=== PATIENT | male | born 1930 | race Two or more races ===

== ENCOUNTER 2019-02-10 13:33 | Observation (INO) | payer MEDICARE ==
[~2019-02-10] VITALS: Ht 175.3 cm; Wt 63.0 kg
--- NOTE | 2019-02-10 18:02 | NUR ---
PT TO FLOOR, TO ROOM 110 AT 1755 VIA STRETCHER. MOVED FROM STRETCHER TO BED WITH 4 PERSON ASSIST. PT WAS INCONTINENT OF LARGE AMOUNT OF URINE. CHANGED CLOTHING, FRESH LINNENS PROVIDED, PLACED ON BED. PT'S SON ACCOMPANIED HIM TO ROOM, BUT THEN STATED HE HAD TO LEAVE, LEFT AT 1800. PT DROWSY, EYES CLOSED. PT REPLIED "NO" WHEN ASKED IF HE SPEAKS ANY TAJIK. WILL GET PROGRAMMER ANALYST PHONE.
--- NOTE | 2019-02-10 18:55 | NUR ---
DR. JOHNSON IN WITH PT, DID DIGITAL DISEMPACTION OF FECES FROM PT'S RECTUM, GOT A MODERATE AMOUNT OF PASTY BROWN STOOL OUT. DR. JOHNSON THEN GAVE ORDER FOR FLEETS ENEMA UT X 1, THIS WAS GIVEN WITH DR. JOHNSON AT PT'S BEDSIDE. PT THEN HAD A MEDIUM FIRM FORMED STOOL AND THEN MEDIUM LIQUIDY BROWN STOOL. PT CLEANED WITH ASSISTANCE FROM NURSING STAFF, ATTENDS PLACED ON PT, FRESH LINNENS PLACED ON BED. PROVIDED PT WITH WARM BLANKETS. BED ALARM ON.
--- NOTE | 2019-02-10 19:42 | NUR ---
REPORT RECEIVED, PT RESTING IN BED, NO NEEDS AT THIS TIME, CALL LIGHT WITHIN REACH. BED ALARM ON. FALL PRECAUTIONS IN PLACE.
--- NOTE | 2019-02-10 20:51 | NUR ---
PT "GRANDDAUGHTER" ELSI CALLED, INQUIRED. SUGGESTED THAT PT SON RADHA BERRIOS SPEAK TO DR JOHNSON FRIDAY MORNING WHEN HE COMES TO HIS FATHERS ROOM. SHE STATED THAT HE WOULD BE HERE.
--- NOTE | 2019-02-10 22:27 | NUR ---
IN ROOM FOR ASSESSMENT AND TO ADMINISTER SCHEDULED MEDS, PT RESTING IN BED, DENIES ANY PAIN OR NAUSEA, DENIES ANY NEEDS AT THIS TIME, INSULIN COVERAGE PROVIDED PER EMAR, SEE EMAR. CALL LIGHT WITHIN REACH. FALL PRECAUTIONS IN PLACE.
--- NOTE | 2019-02-10 22:45 | NUR ---
PT INCONTINENT OF LARGE LOOSE/SOFT BM AND VOID, ATTENDS AND BEDDING CHANGED, SOAP SUDS ENEMA COMPLETE PER ORDERS, PROCEDURE WAS EXPLAINED BY DE ICER, PT TOLERATED WELL. MODERATE AMOUNT OF LOOSE AND SEMI FORMED STOOL NOTED, BEDDING AND ATTENDS CHANGED, PT DENIES ANY NEEDS AT THIS TIME. DENIES PAIN OR NAUSEA, CALL LIGHT WITHIN REACH. IV FLUIDS INFUSING PER EMAR WNL.
--- NOTE | 2019-02-10 23:57 | NUR ---
PT RESTING IN BED, EYES CLOSED, BREATHS EVEN, UNLABORED, NO REQUESTS AT THIS TIME, CALL LIGHT WITHIN REACH. FALL PRECAUTIONS IN PLACE.BED ALARM ON. IV FLUIDS INFUSING PER EMAR WNL.
--- NOTE | 2019-02-11 02:45 | NUR ---
PT NOTED TO BE INCONTINENT OF VERY LARGE AND LOOSE BROWN STOOL ATTENDS AND BEDDING CHANGED, PT TOLERATED WELL. NO FURTHER NEEDS AT THIS TIME. ASSESSMENT COMPLETE. CALL LIGHT WITHIN REACH. IV FLUIDS INFUSING PER EMAR WNL.
--- NOTE | 2019-02-11 06:00 | NUR ---
SECOND SOAP SUDS ENEMA COMPLETE, PT INCONTINENT OF VERY LARGE LOOSE STOOL, BROWN, PT UP TO BSC, PT CONTIUED TO HAVE LARGE BM IN BSC, PT BACK TO BED, ATTENDS CHANGED, BEDDING CHANGED. PT DID WELL WITH 2 PERSON ASSIST/PIVOT TO BSC. IV FLUIDS INFUSING PER EMAR WNL.
--- NOTE | 2019-02-11 07:00 | NUR ---
BEDSIDE HANDOFF REPORT RECEIVED FROM TENTERING MACHINE FEEDER RN. PT RESTING IN BED. PT INCONTINENT OF LARGE STOOL, PERICARE PEROFMORED. PT PROVIDED WITH WARM BLANKETS. PT DENIES OTHER NEEDS AT THIS TIME.
--- NOTE | 2019-02-11 08:00 | NUR ---
PT RESTING IN BED. SPORTS REPORTER CODING TECHNICIAN. PT ON ROOM AIR, LUNG SOUNDS CLEAR. PT DENEIS PAIN, DENIES NAUSEA. PT BOWEL TONES ACTIVE, ABD SOFT NON TENDER, TOLERATING CLEAR LIQUIDS. CMS INATCT, PT WITH TRACE EDEMA TO BLE. PT 2PA TO STAND PIVOT TO CHAIR FOR BREAKFAST. IV FLUIDS INFUSIGN LR AT 100 ML/HR. PT DENIES OTHER NEEDS AT THIS TIME.
--- NOTE | 2019-02-11 09:30 | NUR ---
PT GIVEN LACTULOSE PER ORDER. PT RESTIGNIN BED. PT DENIES NEEDS AT THIS TIME.
--- NOTE | 2019-02-11 09:46 | NUR ---
PATIENT SITTING UP IN CHAIR. VITAL SIGNS AND I&O DONE. PATIENT BACKS TO BED. ONE PERSON ASSISTING. WARM BLANKET PROVIDED. CALL LIGHT WITHIN REACH. NO OTHER NEEDS AT THIS TIME
--- NOTE | 2019-02-11 10:00 | NUR ---
PT GIVEN BISACODYL SUPPOSITORY PER ORDER, SMALL AMOUNT OF LIQUID STOOL DURING INSERTION. PT RESTING IN BED. SON AT BEDSIDE, UPDATED ON PLAN OF CARE. PT DENIES OTHER NEEDS AT THIS TIME.
--- NOTE | 2019-02-11 11:01 | NUR ---
PATIENT RESTING IN BED. RN AND SON IN ROOM. PATIENT CLEANED. PATIENT TRANSFERRED TO SHOWER CHAIR. TWO PERSON ASSISTING. PATIENT TAKES A SHOWER. ONE PERSON ASSISTING. PATIENT USING A CLEAN GOWN AND ADULT PULL UP. PATIENT BACKS TO BED. CALL LIGHT WITHIN REACH. NO OTHER NEEDS AT THIS TIME
--- NOTE | 2019-02-11 12:20 | NUR ---
PT BLOOD GLUCOSE 205, GIVEN 3 UNITS SS HUMALOG. PT ASSISTED TO CHAIR WITH 1PA TO EAT LUNCH. PT DENIES OTHER NEEDS AT THIS TIME.
--- NOTE | 2019-02-11 12:49 | NUR ---
CALL LIGHT ANSWERED. PATIENT SITTING UP IN CHAIR. PATIENT GOES BACK TO BED. ONE PERSON ASSISTING. WARM BLANKET PROVIDED. CALL LIGHT WITHIN REACH. NO OTHER NEEDS AT THIS TIME
--- NOTE | 2019-02-11 13:24 | NUR ---
PATIENT RESTING IN BED. VITAL SIGNS AND I&O DONE. CALL LIGHT WITHIN REACH. NO OTHER NEEDS AT THIS TIME
--- NOTE | 2019-02-11 14:28 | NUR ---
PATIENT RESTING IN BED. PATIENT ATTEND AND GOWN CHANGED. WARM BLANKET PROVIDED PATIENT'S DINNER AND BREAKFAST ORDERED. CALL LIGHT WITHIN REACH. NO OTHER NEEDS AT THIS TIME
[2019-02-11] MEDS ORDERED: SENOKOT8.6 MG PO (14:37)
[2019-02-11] MEDS ORDERED: LACTULOSE10 GM/152 PO (14:38)
--- NOTE | 2019-02-11 14:40 | NUR ---
MD TO BEDSIDE TO EVALUATE PT. PLAN FOR DISCHARGE THIS AFTERNOON. SON RADHA CALLED AND NOTIFIED OF RODY SON TO COME DIRECTOR OF PREMIUM SEAT SALES PT LATER THIS EVENING.
--- NOTE | 2019-02-11 17:16 | NUR ---
PT GIVEN 1 UNIT SS HUMALOG FOR BLOOD GLUCOSE 142. PT ASSISTED TO CHAIR FOR DINNER. PT DENIES OTHER NEEDS AT THIS TIME.
--- NOTE | 2019-02-11 17:24 | NUR ---
PATIENT SITTING UP IN CHAIR. VITAL SIGNS AND I&O DONE. CALL LIGHT WITHIN REACH. NO OTHER NEEDS AT THIS TIME
--- NOTE | 2019-02-11 19:45 | NUR ---
PT'S SON ARRIVED TO TAKE HIM HOME. DARIUSZ CHAPA REMOVED IV AND PT TOLERATED WELL. BEL LEE COMPLETED DC INSTRUCTIONS AND EDUCATION WITH PT AND SON BEFORE SHE LEFT. THIS RN WAS NOTIFIED THAT PT WAS DRESSED AND READY TO GO HOME. VS WERE TAKEN BY GONZALEZ CHAPA AND SHE DRESSED HIM. PT LEFT WITH SON VIA WHEELCHAIR. HE HAS ALL RX AND DENIES FURTHER QUESTIONS.
[2019-02-12] MEDS ORDERED: ACTOS30 MG PO (17:54)
[2019-02-12] MEDS ORDERED: LIPITOR40 MG PO (17:54)
[2019-02-12] MEDS ORDERED: GLUCOPHAGE1000 MG PO (17:55)
== END 2019-02-11 19:48 | disposition home or self-care (01) ==
LOC: ED 13:33 → MS 13:35
PROVIDERS: ADMIT Internal Medicine
DX: K56.41 Fecal impaction (principal); K59.09 Other constipation; E11.9 Type 2 diabetes mellitus without complications; E86.0 Dehydration; Z87.891 Personal history of nicotine dependence; Z86.73 Personal history of transient ischemic attack (TIA), and cerebral infarction without residual deficits
CPT/HCPCS: 36415; 74177; 80048; 80053; 81001; 83690; 83735; 85025; 96361; 99284-25; G0378; J1815; J2405; J2765; J7040; J7120; Q9967

== ENCOUNTER 2019-02-12 10:48 | Inpatient (IN) | payer MEDICARE ==
[~2019-02-12] VITALS: Ht 175.3 cm; Wt 63.0 kg
[~2019-02-12 10:48] MED LIST: LACTULOSE10 GM/152 PO; SENOKOT8.6 MG PO
--- OUTSIDE RECORDS SUMMARY | 2019-02-12 10:52 | XMS ---
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 Long has no Care Guidelines for this patient. [place] VISIT COUNT (12 MO.) [address] [facility] TOTAL 2 NOTE: Visits indicate total known visits. ED/C VISIT TRACKING (12 MO.) 02/12/2019 10:49 [facility] [place] TYPE: Emergency COMPLAINT: - RIGHT LEG PAIN/FALL 02/10/2019 13:34 [facility] [place] TYPE: Emergency COMPLAINT: - NASEAU/VOMITING NOT EATING INPATIENT VISIT TRACKING (12 MO.) 02/10/2019 13:35 [facility] [place] TYPE: Observation COMPLAINT: - FECAL IMPACTION,MECHANICAL BOWEL OBSTRUCTION DIAGNOSES: - Fecal impaction - Dehydration - Other constipation - Personal history of nicotine dependence - Personal history of transient ischemic attack (TIA), and cerebral infarction without residual deficits - Unspecified abdominal pain - Type 2 diabetes mellitus without complications [email or web address]
--- NOTE | 2019-02-12 14:35 | NUR ---
1435: PT ARRIVED TO MED-SURG FROM ER. PT STATES HE HAS RIGHT HIP PAIN RATED AT AN 8/10. PT ORIENTED TO THE ROOM AND INSTRUCTED TO CALL AND TO NOT TRY AND GET UP WITHOUT HELP.
--- NOTE | 2019-02-12 15:51 | NUR ---
Pt states he has no pain at this time.
--- NOTE | 2019-02-12 16:20 | NUR ---
PATIENT RESTING IN BED. SON IN ROOM. PATIENT'S DINNER ORDERED. CALL LIGHT WITHIN REACH. NO OTHER NEEDS AT THIS TIME
--- NOTE | 2019-02-12 17:22 | NUR ---
PATIENT RESTING IN BED. SON AND RN IN ROOM. VITAL SIGNS AND I&O DONE. CALL LIGHT WITHIN REACH. NO OTHER NEEDS AT THIS TIME
[2019-02-12] MEDS ORDERED: LIPITOR40 MG PO (17:54)
[2019-02-12] MEDS ORDERED: ACTOS30 MG PO (17:54)
[2019-02-12] MEDS ORDERED: GLUCOPHAGE1000 MG PO (17:55)
--- NOTE | 2019-02-12 17:56 | NUR ---
PT SLEEPING AT THIS TIME.
--- NOTE | 2019-02-12 17:56 | NUR ---
Ivorian speaking only. Need doses/frequency clarified
--- NOTE | 2019-02-12 18:26 | NUR ---
PT STATES HIS PAIN IS UNDER GOOD CONTROL WHILE AT REST. HE DENIES THE NEED FOR ANY PAIN MEDICATION AT THIS TIME.
--- NOTE | 2019-02-12 19:05 | NUR ---
BEDSIDE REPORT RECEIVED FROM OFFGOING RN. PT RESTING IN BED, DOES NOT WAKE DURING REPORT. CALL LIGHT IN REACH. ROOM IN VIEW OF RN STATION.
--- NOTE | 2019-02-12 19:40 | NUR ---
AWAKES EASILY, ON ROOM AIR. EXPLAINED HOSP ROUTINES IN JAPANESE BY THIS RN. STAED UNDERSTANDING, DENIES C/O R LEG PAIN. CALL LIGHT AND FLUIDS AT BEDSIDE
--- NOTE | 2019-02-12 21:19 | NUR ---
PT ASSESSMENT COMPLETE. PT RATES PAIN 04/17, STATES "ESTA MAGGIE". SCHEDULED TYLENOL ADMINSITERED. PT FOUND TO BED INCONTINENT OF URINE. BED LINENS CHANGED, ATTENDS PLACED AND CHUX PLACED ON BED. CMS INTACT. PT HAS HX OF CVA WITH R SIDED DEFICITS. PT REPORTS NUMBNESS AND TINGLING TO R HAND, DENIES NUMBNESS OR TINGLING TO R LOWER EXTREMITY. PERSONAL CARE ITEMS PLACED AT BEDSIDE. CALL LIGHT IN REACH. ROOM IN VIEW OF RN STATION.
--- NOTE | 2019-02-12 23:32 | NUR ---
PT RESTING IN BED WITH EYES CLOSED. BLANKETS ARE PULLED UP OVER PT'S FACE. RESPIRATIONS ARE EVEN AND UNLABORED. PT APPEARS TO BE SLEEPING. CALL LIGHT IN REACH. ROOM IN VIEW OF RN STATION.
--- NOTE | 2019-02-13 01:30 | NUR ---
PT RESTING IN BED WITH EYES CLOSED. BLANKETS TUCKED AROUND PT'S HEAD. RESPIRATIONS EVEN AND UNLABORED. PT DOES NOT WAKE WHILE MINE SUPERVISOR ENTERS THE ROOM. PT APPEARS TO BE SLEEPING. CALL LIGHT IN REACH. ROOM IN VIEW OF RN STATION.
--- NOTE | 2019-02-13 03:29 | NUR ---
PT ASSISTED TO USE THE URINAL. PT STATES "ESTA MAGGIE" WHEN ASKED ABOUT PAIN. PT ASSISTED TO REPOSITION. PT ASSESSMENT COMPLETE. CALL LIGHT IN REACH. ROOM IN VIEW OF RN STATION.
--- NOTE | 2019-02-13 04:53 | NUR ---
PT SLEPT WELL OVERNIGHT. PAIN WELL CONTROLLED WITH SCHEDULED TYLENOL. NO NAUSEA OR SOB. PT USES URINAL IN BED THIS SHIFT. ATTENDS FOR INCONTINENCE. CMS INTACT TO ALL EXTREMITIES. HX NUMBNESS AND TINGLING TO R HAND AND R FACIAL DROOP D/T OLD CVA. WEIGHT BEARING TOLERATED. ACCUCHECK AND SSI. LR @ 75.
--- NOTE | 2019-02-13 06:06 | NUR ---
INCONTINENT OF URINE, CHANGED, SKIN CARE DONE, REPOSITIONED IN BED. PROCEDURE EXPLAINED IN SWEDISH. C/O MILD DISCOMFORT R LEG WITH TURNING, DENIES NEED FOR PAIN MED AT THIS TIME.
--- NOTE | 2019-02-13 07:23 | NUR ---
0700: BEDSIDE REPORT RECIEVED. PT SLEEPING, CALL YAÑEZ WITHIN REACH.
--- NOTE | 2019-02-13 08:44 | NUR ---
PT NOW EATING HIS BREAKFAST AND RATING HIS PAIN AT A 4/10 WHICH IS ACCEPTABLE TO HIM. CALL YAÑEZ WITHIN REACH.
--- NOTE | 2019-02-13 10:19 | NUR ---
Pt sleeping in his room, he awakes to voice and rates his right hip pain at a 4 which is acceptable to him. He states the pain does increase with movement. Pt quickly back to sleep.
--- NOTE | 2019-02-13 10:30 | NUR ---
Pt had been incont of stool and was cleaned up and a fresh attends placed. Pt stood and ambulated around his bed with assist by myself and the physical therapist. Pt then sat down in the recliner. He states he has no pain at rest and he rated to a 6 with walking and states it is now gone.
--- NOTE | 2019-02-13 13:29 | NUR ---
PT WAS SLEEPING, AWAKES TO VOICE AND FOLLOWS COMMANDS OF THE ONES THAT HE CAN UNDERSTAND. PT DENIES ANY PAIN AT REST.
--- NOTE | 2019-02-13 14:18 | NUR ---
PT SLEEPING AT THIS TIME.
--- NOTE | 2019-02-13 16:15 | NUR ---
Pt resting in bed and is visiting with his son. Pt denies any pain at rest. Right pedal pulse +2.
--- NOTE | 2019-02-13 18:06 | NUR ---
PT WAS INCONT OF A MEDIUM SIZED MUCOIED STOOL. WAS WAS CLEANED AND A FRESH ATTENDS WAS PLACED. THE PT TOLERATED TO TURNING FAIR AND IS NOW BACK TO SLEEP.
--- NOTE | 2019-02-13 19:02 | NUR ---
RECEIVED REPORT FROM ROSA CARREON. pt RESTING WITH EYES CLOSED, RESPIRATIONS REGULAR AND UNLABORED. WHITEBOARD UPDATED. CALL LIGHT WITHIN REACH.
--- NOTE | 2019-02-13 20:46 | NUR ---
TOBY IN ROOM TO DO VITALS. ASSESSMENT DONE. pt REPORTED 6/10 PAIN WHEN MOVING. pt IDENTIFIED MEDICATIONS IN [place], MEDICATIONS GIVEN (SEE MAR). ICE PACK PROVIDED FOR HIP. NO REQUESTS AT THIS TIME. CALL LIGHT WITHIN REACH.
--- NOTE | 2019-02-13 21:32 | EKG ---
[facility] [address] [facility] [place] [address] Signed Sinus tachycardia Left axis deviation Abnormal ECG No previous ECGs available Confirmed by SANDRO JOHNSON MD ([id number]) on 02/13/2019 9:32:08 PM Electronically Signed By: SANDRO JOHNSON MD 02/13/19 213 PATIENT NAME: LV BERRIOS Electrocardiogram DATE OF : 34 PHYSICIAN: SANDRO JOHNSON MD REPORT #: [id number] REPORT IS CONFIDENTIAL AND NOT TO BE RELEASED WITHOUT AUTHORIZATION
--- NOTE | 2019-02-13 22:52 | NUR ---
ROUNDED ON pt. RESTING WITH EYES CLOSED, RESPIRATIONS REGULAR AND UNLABORED. RATE = 16. CALL LIGHT WITHIN REACH.
--- NOTE | 2019-02-14 01:29 | NUR ---
ROUNDED ON pt. RESTING WITH EYES CLOSED, RESPIRATIONS REGULAR AND UNLABORED. RATE = 16. CALL LIGHT WITHIN REACH.
--- NOTE | 2019-02-14 03:53 | NUR ---
ROUNDED ON pt. RESTING WITH EYES CLOSED, RESPIRATIONS REGULAR IN RATE AND RHYTHM. RATE = 16. URINAL EMPTIED. CALL LIGHT WITHIN REACH.
--- NOTE | 2019-02-14 05:18 | NUR ---
pt RESTED MOST OF SHIFT. PAIN CONTROL WITH SCHEDULED MEDS. USES URINAL AT BEDSIDE. ATTENDS FOR INCONTINENCES. HX NUMBNESS AND TINGLING TO RIGHT HAND AND RIGHT FACIAL DROOP FROM OLD CVA. WEIGHT BEARING TOLERATED. ACCUCHECK AND SLIDING SCALE. IV SL. SAMI SPEAKING.
--- NOTE | 2019-02-14 05:45 | NUR ---
WELDING EQUIPMENT REPAIRER SUPERVISOR IN TO DO VITALS. pt AWAKE. ASSESSMENT DONE. INDICATED A LITTLE BIT OF PAIN. BREAKFAST ORDER TAKEN. COFFEE PROVIDED. CALL LIGHT WITHIN REACH.
--- NOTE | 2019-02-14 07:18 | NUR ---
0700: Bedside report recieved from Lisa LEE. Pt sleeping at this time and appears in no distress. Call lui within reach.
--- NOTE | 2019-02-14 08:17 | NUR ---
Pt was sleeping when I arrived to his room, he awakes to voice and states his pain is a 3 which is acceptable to him. Pt medicated with scheduled Tylenol. Pt now sitting up in his bed having breakfast. call lui within reach.
--- NOTE | 2019-02-14 09:19 | NUR ---
PT HAD A LARGE BROWN LIQUID BM OF WHICH HE WAS INCONT. PT CLEANED AND FRESH ATTENTS PLACED. PT HAD SOME NOTED PAIN WITH TURNING OF WHICH HE RATED AT A 4/10 AND HE STATES IT IS MUCH BETTER AFTER THE CHANGE WAS COMPLETED. DR JOHNSON NOTIFIED OF THE LIQUID BM.
--- NOTE | 2019-02-14 09:25 | NUR ---
ASSISTED NURSE IN ROOM, WITH CHANGE
--- NOTE | 2019-02-14 09:40 | NUR ---
Pt states his pain level is a 3/10 but is now starting to work with physical therapy. He states he would like some pain medication and was medicated as ordered. See Emar.
--- NOTE | 2019-02-14 09:50 | NUR ---
Pt up ambulating in the christina with myself and physical therapy. The pt states his pain is improving the longer he is up walking. Pt walked past the nursing station and back. He is now up in his chair and is ordering his lunch. Pt states his pain is now gone that he is resting.
--- NOTE | 2019-02-14 10:37 | NUR ---
Pt sleeping in his recliner at this time.
--- NOTE | 2019-02-14 13:38 | NUR ---
PT RESTING IN HIS RECLINER WATCHING TV AND DENIES ANY PAIN AT THIS TIME.
--- NOTE | 2019-02-14 14:52 | NUR ---
Pt ambulated to the BR with assist, gait belt and walker. He was helped into the shower chair and is now showering with the BREAK OUT MAN helping him.
--- NOTE | 2019-02-14 15:08 | NUR ---
Pt back to bed with assistance follow his shower. He has some notable pain with movement but it appears to pass quickly after he is back to bed. Pt was medicated with scheduled tylenol at this time.
--- NOTE | 2019-02-14 15:48 | NUR ---
Pt sleeping at this time.
--- NOTE | 2019-02-14 17:40 | NUR ---
Pt rates his pain at a 3/10 and declines the need for medication at this time.
--- NOTE | 2019-02-14 17:54 | NUR ---
PATIENT IN BED WATCHING TV. CALL LIGHT IN REACH. NO FURTHER NEEDS AT THIS TIME.
--- NOTE | 2019-02-14 17:55 | NUR ---
Pt has been up and ambulated from his room to just past the nurses station and then back to his chair today. He had pain with the walk but states it did decrease after being up for a short time. Pt was also up for a shower this shift. Pt receives oxycodone prn and tylenol prn. Pt had a large incont liquid BM today and the Miralax was DC'd. Pt eating, drinking and voiding well.
--- NOTE | 2019-02-14 18:56 | NUR ---
Pt was incont of large liquid BM. The pt was cleaned and a fresh attends was placed. Pt states his pain is now a 3/10 which he denies the need for pain medications.
--- NOTE | 2019-02-14 19:35 | NUR ---
PT AWAKEN EASILY, COOP WITH ASSESSMENT, DENIES C/O PAIN R LEG, GOOD CMS. ALL PROCEDURES EXPLAINED IN ROMANIAN, PT STATED UNDERSTANDING. CALL LIGHT AND FLUIDS AT BEDSIDE.
--- NOTE | 2019-02-14 21:55 | NUR ---
THIS AUCTION BLOCK CLERK AND MUNICIPAL BOND TRADER EVONNE CLEANED/ CHANGED GOWN. PATIENT HAD BOWEL MOVEMENT.
--- NOTE | 2019-02-14 22:00 | NUR ---
NITROGLYCERIN SUPERVISOR ROUNDING NOTE. PT'S ATTENDS CHANGED. PT REPORTS PAIN WITH MOVEMENT, DECLINES PAIN MEDICATION. SCHEDULED TYLENOL TO BE ADMINISTERED. PT PROVIDED WITH WARM BLANKET. PT STATES "HASTA MANANA" AND LAUGHS. CALL LIGHT IN REACH. ROOM IN VIEW OF RN STATION.
--- NOTE | 2019-02-15 01:19 | NUR ---
RESTING, TURNED Q2H, COMFORTABLE, NO FURTHER C/O PAIN. GOOD CMS R LEG. CALL LIGHT AND FLUIDS AT BEDSIDE
--- NOTE | 2019-02-15 05:26 | NUR ---
AWAKENS EASILY, C/O DISCOMFORT R HIP WHEN TURNING. GETS TYLENOL ATC. SERBIAN SPEAKING ONLY. HELPS WITH TURNING, WAS INCONTINENT OF BOWEL, USES URINAL AND IS INCONTINENT OF URINE AT TIMES. PLEASANT AND COOPERATIVE. TOLERATING FLUIDS AND DIET WELL. NO S/SX ADVERSE REACTION OF HYPER/HYPO GLYCEMIA
--- NOTE | 2019-02-15 07:56 | NUR ---
SITTING UP IN BED, EATING BREAKFAST. NO C/O PAIN. COOP WITH ASSESSMENT. CALL LIGHT AND FLUIDS AT BEDSIDE
--- NOTE | 2019-02-15 08:17 | NUR ---
PATIENT SITTING UP IN BED EATING BREAKFAST. CALL LIGHT IN REACH. NO FURTHER NEEDS AT THIS TIME.
--- NOTE | 2019-02-15 08:35 | NUR ---
pt lying in bed watching tv and states that he is "shahab"- good.
--- NOTE | 2019-02-15 09:10 | NUR ---
PT INCONTINENT OF STOOL AND URINE. 2 PERSON ASSIST TO CHANGE GOWN, CHUX AND DEPENDS. PT FACIAL EXPRESSION PAINFUL. PT MEDICATED FOR PAIN AND REPOSITIONED WITH PILLOW UNDER RT KNEE. EQUATORIAL GUINEAN SPEAKING STAFF ABLE TO ASK PT IF PILLOW UNDER KNEE HELPFUL. PT STATES THAT IT IS AND THAT HE IS GOOD FOR NOW.
--- NOTE | 2019-02-15 09:25 | NUR ---
PATIENT IN BED WATCHING TV. CALL LIGHT IN REACH. NO FURTHER NEEDS AT THIS TIME.
--- NOTE | 2019-02-15 10:00 | NUR ---
OT in room with this RN and Lao speaking staff member for questions. Pt able to be sat up to semi-fowlers to wash face and hands and perform oral care when handed supplies. Pt rates his pain a "5" any time he tries to move his rt leg. Pt states that when he is supine or in low-fowlers and still, he has no pain. Pt unable to move from bed for additional OT tasks.
--- NOTE | 2019-02-15 10:24 | CONS ---
[facility] [address], [place] [address] Signed DATE OF CONSULTATION: HISTORY OF PRESENT ILLNESS: Mr. Sorto is an 88-year-old male, who was admitted to the ER yesterday. 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 Because of his difficulty with getting up and moving, he was brought to the emergency room where x-rays of the right hip were taken and they showed a nondisplaced greater trochanteric fracture. PHYSICAL EXAMINATION: GENERAL: The patient was actually sleeping comfortably this morning. SKIN: Inspection of his skin does not reveal any skin lesions or defects in the area of the hip. Review of his imaging does show a nondisplaced crack through the greater trochanter with no displacement. However, the prosthesis appears to be well located and appears to be stable. It is a proximal porous coat ingrowth prosthesis and the porous coating seems to extend well distal to the area of the nondisplaced fracture and does not appear to be disturbed. IMPRESSION AND PLAN: He has a stable periprosthetic fracture. This should not require any orthopedic intervention. At his age, we felt it would be safe to let him go weightbearing as tolerated with the use of a four-wheeled walker. Once he is comfortable enough, he could certainly be discharged. We should see him back in about a month with new x-rays. MD JB Carver/MUNIRL /[id number] Copies: ~ Electronically Signed By: SHANON YAÑEZ MD 06/10/19 1024 PATIENT NAME: LV SORTO CONSULTATION DATE OF : 34 REPORT #: [id number] PHYSICIAN: SHANON YAÑEZ MD PCP: NO PRIMARY CARE PHYSICIAN REPORT IS CONFIDENTIAL AND NOT TO BE RELEASED WITHOUT AUTHORIZATION
--- NOTE | 2019-02-15 11:55 | NUR ---
pt assisted back to bed from following PT with help of this RN and LADLE REPAIRER. Linen changed. pt provided with new urinal and repositioned. pt incontinent of urine and stool. new depends placed.
--- NOTE | 2019-02-15 12:30 | NUR ---
scheduled meds given. pt watching tv and eating lunch. He states that his pain is little.
--- NOTE | 2019-02-15 13:30 | NUR ---
pt sleeping in no apparent distress. lunch tray removed.
--- NOTE | 2019-02-15 14:04 | NUR ---
REPORT RECEIVED FROM JOSE LEE. PT IN BED. ARLIN AT BEDSIDE. CALL LIGHT IN REACH.
--- NOTE | 2019-02-15 14:30 | NUR ---
SPOKE WITH PATIENTS SON RADHA IN ROOM. PATIENT WORKING WITH PT IN [place]. RADHA SPEAKS CHINESE, STATES PATIENT CAME TO LIVE WITH HIM FROM [place] A FEW WEEKS AGO. STATES HE DID HAVE A PCP AND WAS TREATED FOR HEART DISEASE, DM, HIGH CHOLESTEROL AND TOOK VITAMINS. STATES HE DID NOT HAVE ALL HIS MEDICINES WHEN HE CAME UP. STATES HE IS NOW LIVING WITH HIMSELF AND HIS SON AND THEY BOTH WORK. STATES HE FELL. STATES HE UNDERSTANDS PATIENT NEEDS TO GO TO A REHAB CENTER BEFORE COMING HOME AGAIN. STATES HE WILL NEED TO TAKE CARE OF HIMSELF THEY ARE NOT HOME FOR LONG PERIODS OF TIME. HE STATES PATIENT DOES NOT HAVE A WALKER AT HOME. HE WOULD LIKE TO HAVE HIM GO TO THE REHAB AT [facility] IN [place] BECAUSE THEY WORK IN [place] AND THEN THEY CAN CHECK IN ON HIM. HE STATES PATIENT WAS NOT USING ANY DME BEFORE FALL. STATES PT DOES NOT SPEAK CHINESE, KNOWS SOME WORDS, BUT CANNOT SPEAK IT WELL. HE STATES PATIENT DOES UNDERSTAND ABOUT HIS FALL, HIS BREAK AND HIS NEED FOR REHAB AND AGREES TO STAY AT REHAB CENTER. AGREED I WILL CONTACT [facility]. HE STATES HE WILL CALL CLINIC ABOUT GETTING PATIENT A PCP. HE STATES HE CAN WORK ON THAT TOMORROW. QUESTIONS ANSWERED.
--- NOTE | 2019-02-15 15:01 | NUR ---
PATIENT IN BED RESTING WITH EYES CLOSED. FRESH WATER GIVEN. CALL LIGHT IN REACH. NO FURTHER NEEDS AT THIS TIME.
--- NOTE | 2019-02-15 15:32 | NUR ---
PT LYING IN BED, REPORTS NO PAIN NOW. ONLY WHEN MOVING. SCHEDULED TYLENOL GIVEN. CALL LIGHT IN REACH. DENIES NEEDS.
--- NOTE | 2019-02-15 15:50 | NUR ---
THERE IS A DIETARY CONSULT BUT NOTHING IS SPECIFIED. PATIENT IS TONGAN SPEAKING ONLY. ON A 60 GRAM CONSISTENT CARB DIET. DIET EDUCATION DOES NOT SEEM TO BE THE NEED PATIENT CANNOT SPEAK KOSOVAN AND USING THE PHONE INTERPRETOR HAS NOT WORKED WELL. SON WAS HERE FOR A LITTLE WHILE THIS AFTERNOON. HE WAS SPEAKING WITH MARY ANN, FROM DISCHARGE PLANNING, THEN HE LEFT. A COUPLE OF THE NURSING STAFF HAVE BEEN ABLE TO COMMUNICATE WITH PATIENT TO GET FOOD ORDERS. WILL CONTINUE TO BE AVAILABLE FOR ANY NUTRITION NEEDS.
--- NOTE | 2019-02-15 16:01 | NUR ---
FAXED CLINICALS TO [facility]. FAX CONFIRMATION RECEIVED 02/15/19 0100. SPOKE WITH INSURANCE MARKETING SPECIALIST BY PHONE. SHE STATES THEY HAVE A BED, CAN PROBABLY TAKE HIM TOMORROW MORNING.
--- NOTE | 2019-02-15 18:02 | NUR ---
PATIENT UP FROM CHAIR TO BED, 1PA FWW. FRESH WATER GIVEN. CALL LIGHT IN REACH. NO FURTHER NEEDS AT THIS TIME.
--- NOTE | 2019-02-15 18:15 | NUR ---
PT HAD GOOD DAY. WORKED WITH PT. PAIN WELL CONTROLLED. SBA WITH FWW. UP TO CHAIR WITH MEALS. ENCOURAGE PO INTAKE.
--- NOTE | 2019-02-15 20:12 | NUR ---
RECEIVED REPORT FROM DAY SHIFT RN. PATIENT IS RESTING IN BED WITH EYES CLOSED, RR 17. CALL LIGHT IN REACH.
--- NOTE | 2019-02-15 20:22 | NUR ---
CHARGE NURSE REPORT RECEIVED. PT IN BED, WITH EYES CLOSED.
--- NOTE | 2019-02-15 21:50 | NUR ---
PATIENT ASSESMENT COMPLETED. PATIENTS VITALS TAKEN AND RECORDED BY CONFECTIONERY COOKER. PATIENTS URINAL EMPTIED AND INTAKE AND OUPUT RECORDED. PATIENTS ATTEND IS DRY AT THIS TIME. PATIENT DENIES ANY PAIN. PATIENT REPOSITIONED IN BED. PATIENTS EVENING MEDICATIONS GIVEN PER ORDER. PATIENT DENIES ANY NEEDS. FRESH ICE WATER PROVIDED. CALL LIGHT IN REACH.
--- NOTE | 2019-02-15 22:21 | NUR ---
PATIENT IS RESTING IN BED WITH EYES CLSOED, RR 18. CALL LIGHT IN REACH. BEDSIDE URINAL EMPTIED.
--- NOTE | 2019-02-16 00:30 | NUR ---
PATIENT IS RESTING IN BED WITH EYES CLOSED, RR 18. CALL LIGHT IN REACH.
--- NOTE | 2019-02-16 03:13 | NUR ---
PATIENTS ATTEND CHANGED. PATIENT HAD X1 BM. PATIENT REPOSITIONED IN BED. PATIENT ONLY COMPLAINS OF PAIN WITH MOEVEMNT. AT REST WHEN ASKED ABOUT PAIN PATIENT SHAKES HIS HEAD NO. NO NEEDS NOTED. CALL LIGHT IN REACH.
--- NOTE | 2019-02-16 03:19 | NUR ---
THIS OTOLARYNGOLOGY SURGEON AND PRIMARY RN CLEANED PATIENT AND CHANGED PATIENT'S ATTENDS.
--- NOTE | 2019-02-16 04:12 | NUR ---
PATIENT IS RESTING IN BED USING URINAL AT THIS TIME. NO NEEDS NOTED. CALL LIGHT IN REACH.
--- NOTE | 2019-02-16 04:40 | NUR ---
PATIENT RESTED WELL THROUGHOUT THE SHIFT. PATIENT IS ON AN ADA DIET AND TOELRATING WELL, NO COMPLAINTS OF NAUSEA. PATIENT IS WORKING WITH PT/OT. PATIENT IS A 2PA W/FWW. WEIGHT BEARING TOLERATED. PATIENT IS INCONTINENT AT TIMES AND USES URINAL IN BED. PATIENT IS SL. PATIENT IS ON RA. PATIENT IS SCOTTISH SPEAKING. PATIENT HAS HAD X1 BM.
--- NOTE | 2019-02-16 06:42 | NUR ---
PATIENTS VITALS TAKEN AND RECORDED. INTAKE AND OUTPUT RECORDED. PATIENT DENIES ANY PAIN. ATTEND IS DRY. NO NEEDS NOTED. CALL LIGHT IN REACH.
--- NOTE | 2019-02-16 07:15 | NUR ---
BEDSIDE HANDOFF REPORT RECEIVED FROM AGRICULTURAL COMMODITIES GRADER RN. PT SLEEPING, LEFT UNDISTURBED.
--- NOTE | 2019-02-16 08:26 | NUR ---
PATIENT UP TO CHAIR FROM BED, 1PA FWW. CALL LIGHT IN REACH. NO FURTHER NEEDS AT THIS TIME.
--- NOTE | 2019-02-16 08:30 | NUR ---
PT SITTINGIN CHAIR. PT RATING PAIN 3/10, TO RIGHT HIP, WITH MOVEMENT, GIVEN SCHEDULED TYLENOL. PT ON ROOM AIR, LUNG SOUNDS CLEAR. BOWEL TONES ACTIVE, SS HUMALOG HELD FOR BLOOD GLUCOSE 120. CMS INTACT, WITHOUT EDEMA. IV SALINE LOCKED, FLUSHED, OCCLUDED. PT INCONTINENT OF URINE, ATTENDS IN PLACE. PT PROVIDED FRESH WATER. PT DENIES OTHER NEEDS AT THIS TIME.
--- NOTE | 2019-02-16 09:30 | NUR ---
PATIENT IN CHAIR WATCHING TV. FRESH WATER GIVEN. CALL LIGHT IN REACH. NO FURTHER NEEDS AT THIS TIME.
--- NOTE | 2019-02-16 12:10 | NUR ---
PT GIVEN 3 UNITS SS HUMALOG FOR BLOOD GLUCOSE 198. PT SITTING IN CHAIR, PT DENIES OTHER NEEDS AT THIS TIME.
--- NOTE | 2019-02-16 14:00 | NUR ---
PATIENT UP TO BED FROM CHAIR, 1PA FWW. CALL LIGHT IN REACH. NO FURTHER NEEDS AT THIS TIME.
--- NOTE | 2019-02-16 15:11 | NUR ---
SON, ESTHER, HERE THIS AFTERNOON. I ASKED HIM IF HIS DAD HAS LOST WEIGHT OR HAS ANY EATING ISSUES. HE SAID HE DIDN'T KNOW HOW MUCH HE WEIGHED BUT HE USED TO WEIGH AROUND 175 LBS. I LOOKED AT HIS WEIGHT FROM FEBRUARY 12 AT HE WEIGHS 139 LBS. PATIENT HAS LOST WEIGHT SINCE LIVING WITH HIS GIRLFRIEND AND HER DAUGHTER. THE DAUGHTER WOULDN'T LET HIM SNACK. SHE ONLY LET HIM EAT WHAT SHE COOKED. PROVIDED SON WITH SOME CYMRAES AND HUNGARIAN INFORMATION ON CARBOHYDRATES. WE TALKED ABOUT LIMITING ADDED SUGAR LIKE POP, LOTS OF CANDIES, ETC. PROVIDED EDUCATION ON AMOUNTS WITH HANDOUTS IN HUNGARIAN AND CYMRAES. SNACK IDEAS (CARB + PROTEIN FOODS) PROVIDED, WELL A SAMPLE 1 DAY MENU. PATIENT HAS NO TEETH HERE, HE WEARS DENTURES, SO HE NEEDS SOFT FOODS IN GENERAL. HE USED TO LIKE TO EAT PEANUTS BUT HE CAN'T NOW DUE TO NO TEETH. I RECOMMENDED PATIENT EATS 3 MEALS AND 2 SNACKS EACH DAY TO HELP HIM MEET HIS CALORIE AND PROTEIN NEEDS. SON SAID HIS DAD WILL GO TO SKILLED NURSING FOR 20 DAYS, AND HE WANTS HIS DAD TO GET STRONGER. SON HAS NO OTHER QUESTIONS AT THIS TIME. I WILL REMAIN AVAILABLE IF NEEDED.
--- NOTE | 2019-02-16 16:50 | NUR ---
RECEIVED INFORMATION FROM ADMITTING THAT PATIENT HAD WRONG INSURANCE INFORMATION. THEY HAVE LOCATED HIS COVERAGE THROUGH [facility]. CLINICALS WERE FAXED PER REQUEST. RECEIVED A CALL FROM RENÉ AT [employer] STATING SHE IS FAXING A SNF REFERRAL FORM AND THIS WILL NEED TO FILLED OUT AND RETURNED BEFORE THEY CAN APPROVE A SNF STAY. THIS FORM WAS RECEIVED, COMPLETED AND FAXED BACK. FAX CONFIRMATION RECEIVED AT 02/16/19 448PM.
--- NOTE | 2019-02-16 17:53 | NUR ---
PT ASSITED TO CHAIR FOR DINNER. PT GIVEN EVENINGS MEDICATIONS PER EMAR. PT DENIES OTHER NEEDS AT THIS TIME.
--- NOTE | 2019-02-16 18:06 | NUR ---
PT ON ALERT. PT ON ROOM AIR, LUNG SOUNS CLEAR. PAIN WELL CONTROLLED WITH SCHEDULED TYLENOL, RATED PAIN 4/10 WITH MOVEMENT NO PAIN AT REST. PT TOLERATING ADA DIET, BLOOD GLUCOSE 116 AT DINNER. NO IV, TAKING PO WELL. CMS INTACT, WITHOTU EDEMA. VOIDING QS, HAD 2 SMALL LOOSE BM TODAY.
--- NOTE | 2019-02-16 19:01 | NUR ---
PATIENT SITTING IN CHAIR. FRESH WATER GIVEN. CALL LIGHT IN REACH. NO FURTHER NEEDS AT THIS TIME.
--- NOTE | 2019-02-16 20:06 | NUR ---
RECEIVED REPORT FROM DAY SHIFT RN. PATIENT IS RESTING IN RECLINER. PATIENT DENIES ANY NEEDS. CALL LIGHT IN REACH.
--- NOTE | 2019-02-16 21:14 | NUR ---
PATIENT ASSESMENT COMPLETED. COMMERCIAL ADMINISTRATOR IN ROOM TO ASSIST WITH CARE. VITALS TAKEN AND RECORDED. ATTEND IS DRY. PATIENT DENIES ENCOURAGED TO DRINK WATER. PATIENT DENIES ANY PAIN. PATIENTS DARCI REMOVED PER ORDER. PATIENT IS ON RA. PATIENT DENIES ANY NEEDS. PATIENT IS NOW ATTEMPTING TO USE THE URINAL.
--- NOTE | 2019-02-16 22:28 | NUR ---
PATIENTS URINAL EMPTIED. INTAKE AND OUTPUT RECORDED. PATIENT IS RESTING IN BED WITH EYES CLSOED, RR 18. CALL LIGHT IN REACH.
--- NOTE | 2019-02-16 23:52 | NUR ---
PATIENT IS RESTING IN BED WITH EYES CLSOED, RR 17. CALL LIGHT IN REACH.
--- NOTE | 2019-02-17 00:53 | NUR ---
PATIENT WAS INCONTINENT OF STOOL. ATTEND CHANGED AND JASON CARE COMPLETED. PATIENTS URINAL EMPTIED. PATIENT DENIES PAIN. NO NEEDS NOTED. CALL LIGHT IN REACH.
--- NOTE | 2019-02-17 03:27 | NUR ---
PATIENT ASSISTED TO REPOSITION. PATIENT DENIES ANY PAIN. NO NEEDS NOTED. CALL LIGHT IN [facility].
--- NOTE | 2019-02-17 04:44 | NUR ---
PATIENT RESTED WELL THROUGHOUT THE SHIFT. PATIENT IS ON AN ADA DIET, TOLERATING IT WELL, AND NO COMPLAINTS OF NAUSEA. PATIENT IS WORKING WITH PT/OT. PATIENT IS A 1PA W/FWW. PATIENT IS WEIGHT BEARING TOLERATED. PATIENT IS INCONTINET AT TIMES OF STOOL AND URINE. PATIENT HAS NO IV PER MD. PATIENT IS ON RA. PATIENT IS MALAY SPEAKING ONLY. PATIENT IS AAOX3. PATIENT DENIED ANY PAIN.
--- NOTE | 2019-02-17 05:44 | NUR ---
PATIENTS VITALS TAKEN AND RECORDED. INTAKE AND OUPUT RECORDED. PATIENT WAS INCONTINENT OF STOOL. PATIENTS ATTEND CHANGED AND JASON CARE COMPLETED. PATIENT DENIES ANY PAIN. PATIENT DENIES ANY NEEDS. CALL LIGHT IN REACH.
--- NOTE | 2019-02-17 07:15 | NUR ---
BEDSIDE HANDOFF REPORT RECEIVED FROM CHORAL TEACHER RN. PT SLEEPING, LEFT UNDISTURBED.
--- NOTE | 2019-02-17 08:24 | NUR ---
PT INCONTINENT OF STOOL, PERICARE PERFORMED. PT ASSISTED TO CAHIR FOR BREAKFAST, SS HUMALOG HELD FOR BLOOD GLUCOSE 120. PT RATING PAIN 4/10, GIVEN SHCEDULED TYLENOL. PT ON ROOM AIR, LUNG SOUNDS CLEAR. BOWEL TONES ACTIVE, DENIES NAUSEA. CMS INTACT, WITHOUT EDEMA. PT WITHOUT IV ACCESS. VOIDING IN URINAL QS. PT DENIES OTHER NEEDS AT THIS TIME.
--- NOTE | 2019-02-17 10:35 | NUR ---
SPOKE WITH ANUJA FROM [facility] WHO REQUESTED LAST OT AND PT NOTES BE FAXED TO HER AT [phone]. FAX CONFIRMATION RECEIVED 02/17/19 2654PM.
--- NOTE | 2019-02-17 11:48 | NUR ---
PT GIVEN 1 UNIT SS HUMALOG FOR BLOOD GLUCOSE 160. PT ASSITED TO CHAIR FOR LUNCH. PT DENIES OTHER NEEDS AT THIS TIME.
--- NOTE | 2019-02-17 13:45 | NUR ---
SPOKE WITH ANUJA FROM [facility] [phone] WHO STATES THEY ARE AUTHORIZING ONE WEEK SNF STAY INITIALLY. THEY ARE CONTACTING [facility]AWNEE BARRERA TO DISCUSSED BILLING. SHE REQUESTS NOTHING FURTHER FROM US. STAFF UPDATED.
--- NOTE | 2019-02-17 16:02 | NUR ---
PT RESTIGN IN BED. PT RATES PAIN 3/10 AT THIS TIME TO RIGHT HIP, GIVEN SCHEDULED TYLENOL. PT DENIES OTHER NEEDS AT THIS TIME.
--- NOTE | 2019-02-17 17:11 | NUR ---
SPOKE WITH PATIENT AND SON, RADHA, IN ROOM. DISCUSSED INSURANCE PAPERWORK AND THAT THEY HAVE AUTHORIZED 7 DAYS IN SNF AND EXPECTATION IS THAT PATIENT WILL GO TO [place] TOMORROW. SON GIVEN [facility] CONTACT INFORMATION AND ADDRESS. QUESTIONS ANSWERED. SON WAS WAITER FOR PATIENT. NO FURTHER QUESTIONS AT THIS TIME.
--- NOTE | 2019-02-17 18:40 | NUR ---
PT ON ROOM AIR, LUNG SOUNDS CLEAR. PT TOLERATING DIABETIC DIET. PAIN WELL CONTROLLED WITH SCHEDULED TYLENOL. PT AMBULATING WITH 1PA WITH FWW. CMS INTACT, WITHOUT EDEMA. PT USING URINAL, VOIDING QS, LOOSE STOOL. PT WITHOUT IV ACCESS. PLAN FOR DISCHARGE TOMORROW TO [facility].
--- NOTE | 2019-02-17 20:14 | NUR ---
ROUNDED CHARGE. PATIENT IS RESTING IN BED. PATIENTS URINAL EMPTIED. PATIENT DENIES ANY PAIN. NO NEEDS NOTED. CALL LIGHT IN REACH.
--- NOTE | 2019-02-17 21:26 | NUR ---
COOP WITH ASSESSMENT, REPOSITIONED IN BED, SCHEDULED TYLENOL GIVEN. COOPERATIVE. CBG 156, RECEIVED 1 UNIT SC INSULIN. ALL PROCEDURES EXPLAINED IN WELSH. STATED UNDERSTANDING. CALL LIGHT AND FLUIDS AT BEDSIDE.
--- NOTE | 2019-02-18 01:42 | NUR ---
RESTING, USING CALL LIGHT APPROPRIATELY, USING URINAL. HELPED WITH REPOSITINING, ALL PROCEDURES EXPLAINED IN MALTESE, STATED UNDERSTANDING. CALL LIGHT AND FLUIDS AT BEDSIDE.
--- NOTE | 2019-02-18 04:52 | NUR ---
INCONTINENT OF SEMI LIQUID YELLOW-BROWN STOOL, CLEANSED, LOTION TO AREA. CLEAN ATTENDDS IN PLACE. COOP WITH PROCEDURE. C/O 09/17 R HIP PAIN WHEN TURNED, DENIES NEED FOR PAIN MED, NO C/O ONCE HE IS BACK ON HIS BACK. TOLERATING LIQUIDS WELL. CALL LIGHT AND LIQUIDS AT BEDSIDE.
--- NOTE | 2019-02-18 06:24 | NUR ---
TURNED Q2H, USES URINAL, WAS INCONTINENT OF SOFT SEMILIQUID BM. [place] SPEAKING ONLY, ALL PROCEDURES EXPLAINED IN [place] BY THIS RN. PT STATED UNDERSTANDING. C/O PAIN ONLY WITH TURNING, AND DENIES NEED FOR PAIN MEDS. TYLENOL ATC SHEDULED EFFECTIVE. TOLERATING DIET WELL, CBG LAST NIGHT WAS 156, RECEIVED 1 UNIT INSULIN. DENIES S/SX OF HYPO/HYPERGLYCEMIA. GOOD CMS R LEG. CALL LIGHT AND FLUIDS AT BEDSIDE, ON ROOM AIR.
--- NOTE | 2019-02-18 07:10 | NUR ---
BEDSIDE HANDOFF REPORT RECEIVED FROM BUTADIENE CONVERTER HELPER RN. PT RESTING IN BED. PT DENIES NEEDS AT THIS TIME.
--- NOTE | 2019-02-18 07:45 | NUR ---
PT INCONTINENT OF STOOL, PERICARE PERFORMED. PT ASSISTED TO CHAIR FOR BREAKFAST. PT BLOOD GLUCOSE 124, SS HUMALOG HELD.
--- NOTE | 2019-02-18 08:30 | NUR ---
PT ON ROOM AIR, LUNG SOUNDS CLEAR. PT RATING PAIN 3/10 TO LEG WITH MOVEMENT, NO PAIN AT REST. CMS INTACT, WITHOUT EDEMA. PT BOWEL TONES ACTIVE, DENIES NAUSEA, TOLERATING ADA DIET. PT WITHOUT IV ACCESS. PT USING URINAL, QS. MORNING MEDICATIONS ADMINISTERED PER EMAR. PT DENIES OTHER NEEDS AT THIS TIME.
--- NOTE | 2019-02-18 08:40 | NUR ---
MESSAGE LEFT FOR [facility] [employer]ATION ATTENDANT AT [facility] REGARDING PATIENTS DISCHARGE THERE TODAY. CHART PACK UPDATED WITH CURRENT CLINICALS, PASSR DONE.
[2019-02-18] MEDS ORDERED: ASPIRIN EC81 MG PO (08:58)
[2019-02-18] MEDS ORDERED: OXYCODONE HCL5 MG PO (08:59)
[2019-02-18] MEDS ORDERED: TYLENOL EXTRA500 MG PO (08:59)
--- NOTE | 2019-02-18 10:30 | NUR ---
ORDERS FAXED TO [facility] [phone] WITH FAX CONFIRMATION RECEIVED. CHART PACK COMPLETE AND LEFT AT DESK WITH STRAIGHTENING MACHINE FEEDER. NURSES WILL FINISH DISCHARGE. STAFF UPDATED.
--- NOTE | 2019-02-18 14:11 | NUR ---
PATIENT SITTING UP IN CHAIR. PATIENT GOES TO USE BATHROOM.PATIENT USES A WALKER. PATIENT TAKES A SHOWER. ONE PERSON ASSISTING. PATIENT IS DRESS. VITAL SIGNS AND I&O DONE. CALL LIGHT WITHIN REACH. NO OTHER NEEDS AT THIS TIME
--- NOTE | 2019-02-18 14:34 | NUR ---
MICAH CALLED TO NURSE DAVIS AT [facility].
--- NOTE | 2019-02-18 15:16 | NUR ---
PT GIVEN SCHEDULED TYLENOL PER ORDER. PT RATNGPAIN 11/15. AWAITING TRANSPORTATION FOR DISCHARGE.
== END 2019-02-18 16:26 | DRG 543 ==
LOC: ED 10:48 → MS 14:12
PROVIDERS: ADMIT Internal Medicine
DX: M80.051A Age-related osteoporosis with current pathological fracture, right femur, initial encounter for fracture (principal); M97.01XA Periprosthetic fracture around internal prosthetic right hip joint, initial encounter; I69.951 Hemiplegia and hemiparesis following unspecified cerebrovascular disease affecting right dominant side; E11.9 Type 2 diabetes mellitus without complications; W19.XXXA Unspecified fall, initial encounter; Z79.84 Long term (current) use of oral hypoglycemic drugs; Z79.899 Other long term (current) drug therapy
CPT/HCPCS: 70450; 73502; 80053; 83036; 85025; 85610; 86850; 86900; 86901; 93005; 93010; 96374; 96375; 97110; 97116; 97162; 97166; 97530; 97535; 99285-25; J1170; J1650; J1815; J2405; J7120

== ENCOUNTER 2019-03-09 15:33 | Emergency (ER) | payer MEDICARE ==
[~2019-03-09] VITALS: Ht 175.3 cm; Wt 63.0 kg
[~2019-03-09 15:33] MED LIST changes: +ACTOS30 MG PO; +ASPIRIN EC81 MG PO; +GLUCOPHAGE1000 MG PO; +LIPITOR40 MG PO; +OXYCODONE HCL5 MG PO; +TYLENOL EXTRA500 MG PO
--- OUTSIDE RECORDS SUMMARY | 2019-03-09 15:36 | XMS ---
PreManage Notification: LV BERRIOS Security Felt Hat Inspector And Packer Events No recent Security Events currently on file CRITERIA MET - Group Notification - [facility] - 2 Visits in 30 Days CARE PROVIDERS Name [facility] Facility Current PHONE: [phone] Long has no Care Guidelines for this patient. [place] VISIT COUNT (12 MO.) 3 [facility] TOTAL 3 NOTE: Visits indicate total known visits. ED/UCC VISIT TRACKING (12 MO.) 03/09/2019 15:34 [facility] TYPE: Emergency COMPLAINT: - DIABETIC PROBLEM,BLOOD PRESSURE PROBLEM 02/12/2019 10:49 [facility] TYPE: Emergency COMPLAINT: - RIGHT LEG PAIN/FALL 02/10/2019 13:34 [facility] TYPE: Emergency COMPLAINT: - NASEAU/VOMITING NOT EATING INPATIENT VISIT TRACKING (12 MO.) 02/12/2019 14:12 [facility] TYPE: Medical Surgical COMPLAINT: - RIGHT LEG PAIN/FALL DIAGNOSES: - Periprosthetic fracture around internal prosthetic right hip joint, initial encounter - Type 2 diabetes mellitus without complications - Age-related osteoporosis with current pathological fracture, right femur, initial encounter for fracture - Type 2 diabetes mellitus without complications - extermination inspector (current) use of oral hypoglycemic drugs - 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 - Periprosthetic fracture around internal prosthetic right hip joint, initial encounter - 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 - extermination inspector (current) use of oral hypoglycemic drugs - Nondisplaced fracture of greater trochanter of right femur, initial encounter for closed fracture - Unspecified fall, initial encounter - Other chcf (current) drug therapy - Age-related osteoporosis with current pathological fracture, right femur, initial encounter for fracture - Other terminal operations supervisor (current) drug therapy - Unspecified fall, initial encounter 02/10/2019 13:35 [facility] TYPE: Observation COMPLAINT: - FECAL IMPACTION,MECHANICAL BOWEL OBSTRUCTION DIAGNOSES: - Fecal impaction - Dehydration - Other constipation - Personal history of nicotine dependence - Personal history of transient ischemic attack (TIA), and cerebral infarction without residual deficits - Unspecified abdominal pain - Type 2 diabetes mellitus without complications [email or web address]
[2019-03-09] MEDS ORDERED: METFORMIN HCL1000 MG PO (15:51)
== END 2019-03-09 16:00 | disposition home or self-care (01) ==
LOC: ED 15:33
DX: E11.9 Type 2 diabetes mellitus without complications (principal); Z86.73 Personal history of transient ischemic attack (TIA), and cerebral infarction without residual deficits; Z87.891 Personal history of nicotine dependence; Z79.82 Long term (current) use of aspirin; Z79.899 Other long term (current) drug therapy
CPT/HCPCS: 99281

== ENCOUNTER 2021-02-25 13:33 | Emergency (ER) | payer MEDICARE ==
[~2021-02-25] VITALS: Ht 175.3 cm; Wt 63.0 kg
[~2021-02-25 13:33] MED LIST changes: +METFORMIN HCL1000 MG PO
--- OUTSIDE RECORDS SUMMARY | 2021-02-25 13:42 | XMS ---
PreManage Notification: LV TRAN Security Manager Staffing Events No recent Security Events currently on file CRITERIA MET - Group Notification CARE PROVIDERS [facility] [employer]. \F\ Sure ChillADOLFO PHONE: [phone] Long has no Care Guidelines for this patient. [place] VISIT COUNT (12 MO.) [address] [facility] TOTAL 1 NOTE: Visits indicate total known visits. ED/UCC VISIT TRACKING (12 MO.) 02/25/2021 13:[address] [facility] TYPE: Emergency COMPLAINT: - DIARRHEA INPATIENT VISIT TRACKING (12 MO.) No inpatient visits to display in this time frame [email or web address]
== END 2021-02-25 15:13 | disposition home or self-care (01) ==
LOC: ED 13:33
DX: R19.7 Diarrhea, unspecified (principal); Z87.891 Personal history of nicotine dependence; Z79.899 Other long term (current) drug therapy; Z79.82 Long term (current) use of aspirin
CPT/HCPCS: 99283